=== PATIENT | male | born 1970 | race Caucasian/White ===

== ENCOUNTER 2019-01-03 13:34 | Inpatient (IN) ==
[2019-01-03] MEDS ORDERED: Furosemide 40 MG/4 ML VIAL IVP ONE (13:43)
--- NOTE | 2019-01-03 13:44 | Emergency Department Note ---
Disposition Clinical Impression: Congestive heart failure, Elevated troponin Disposition: Admitted As Inpatient General Adult HPI - General Chief complaint: ED Shortness of Breath/Dyspnea Stated complaint: gen swelling, out of meds Time Seen by Provider: 01/03/19 13:35 Source: patient Mode of arrival: EMS Limitations: no limitations Nursing Notes Reviewed: Yes Vital Signs Reviewed: Yes - History of Present Illness HPI Narrative: Patient complains of shortness of breath and swelling says he ran out of his Lasix and he has swollen up. He admits this is happened before when he ran out of his Lasix. He denies any other problems such as chest pain fevers chills nausea vomiting Onset (ago): day(s) (2 days) Location: chest, other (Lower body swelling) Pain Scale: 0 Consistency: constant Improves with: nothing Worsens with: nothing Associated symptoms: Reports: shortness of breath - Related Data Home Medications Medication Instructions Recorded Confirmed Levothyroxine [Synthroid] 50 mcg PO 0630 12/06/18 01/03/19 Previous Rx's Medication Instructions Recorded Aspirin Enteric Coated [Aspirin EC] 81 mg PO DAILY #30 tablet. 03/02/18 Atorvastatin [Lipitor] 20 mg PO HS #60 tablet 03/02/18 Carvedilol [Coreg] 6.25 mg PO BIDWM #60 tablet 03/02/18 Furosemide [Lasix] 20 mg PO BIDDIURETIC #60 tablet 03/02/18 Lisinopril [Zestril] 5 mg PO DAILY #30 tablet 03/02/18 metFORMIN [Glucophage] 500 mg PO BIDWM #60 tablet 03/02/18 Allergies Allergy/AdvReac Type Severity Reaction Status Date / Time No Known Allergies Allergy Verified 09/28/15 12:07 All systems ED: reviewed and negative except as stated. Review of Systems: As Per HPI Constitutional: Denies: fever, chills, weakness, weight change Eyes: Denies: eye pain, eye discharge, vision change ENT ED: Denies: ear pain, throat pain, dental pain, hearing loss, epistaxis, congestion, dysphagia Cardiovascular: Denies: chest pain, palpitations, dyspnea on exertion, edema, syncope Respiratory: Reports: as per HPI, dyspnea Gastrointestinal: Denies: abdominal pain, nausea, vomiting, diarrhea, constipation, hematemesis, melena, hematochezia Genitourinary: Denies: urgency, dysuria, frequency, hematuria Musculoskeletal: Reports: as per HPI, other (lower body edema). Denies: back pain, neck pain, arthralgia, myalgia Integumentary: Denies: rash, abrasion, lesions Neurological: Denies: headache, weakness, numbness, paresthesias, confusion, abnormal gait, vertigo Psychiatric: Denies: anxiety, depression, suicidal thoughts, homicidal thoughts, auditory hallucinations, visual hallucinations Endocrine: Denies: fatigue Hematological/Lymphatic: Denies: easy bleeding, easy bruising Allergic/Immunologic: Denies: facial swelling, urticaria Past Medical History - Past Medical History Attestation: Yes The following information was validated with the patient. Source: patient, nursing notes reviewed Medical history: Reports: cardiomyopathy (Ejection fraction 30%), CHF, diabetes, hyperlipidemia, hypertension, thyroid disease, other (Obesity, obstructive sleep apnea, pulmonary hypertension). Denies: DVT, pulmonary embolus, renal disease Surgical history: Reports: herniorrhaphy, other (Left heart catheterization February 2018 with normal coronaries) Psychiatric history: Reports: no psych history - Social History Smoking Status: Never smoker Smokeless Tobacco Status: Yes Alcohol use: Reports: none Drug use: Reports: none Physical Exam - General Limitations: no limitations General appearance: alert, in no apparent distress - Head Head exam: atraumatic, normocephalic, normal inspection - Eye Eye exam: Present: normal appearance, PERRL, EOMI - ENT ENT exam: normal exam, normal oropharynx, mucous membranes moist - Neck Neck exam: Present: normal inspection, full ROM, trachea midline - Chest Chest inspection: Present: normal inspection, symmetric chest wall rise - Respiratory Respiratory exam: Present: other (Decreased breath sounds). Absent: respiratory distress, accessory muscle use - Cardiovascular Cardiovascular exam: Present: regular rate, normal rhythm, normal heart sounds - Abdominal Exam Abdominal exam: Present: soft, Non-Tender - Extremities Exam Extremities exam: Present: pedal edema, other (bilateral leg edema, lower abdominal edema) - Back Exam Back exam: Present: normal inspection, full ROM. Absent: tenderness - Neurological Exam Neurological exam: Present: alert, oriented X3 - Psychiatric Psychiatric exam: Present: normal affect, normal mood - Skin Skin exam: Present: warm, dry, intact, normal color Course Vital Signs Temperature 97.1 F L 01/03/19 13:36 Pulse Rate 86 01/03/19 13:36 Respiratory Rate 24 01/03/19 13:36 Blood Pressure 118/83 01/03/19 13:36 O2 Sat by Pulse Oximetry 90 01/03/19 13:36 Temperature 97.4 F L 01/03/19 18:54 Pulse Rate 80 01/03/19 18:54 Respiratory Rate 16 01/03/19 18:54 Blood Pressure 123/80 01/03/19 18:54 O2 Sat by Pulse Oximetry 98 01/03/19 18:54 Oxygen Delivery Oxygen Delivery Nasal Cannula Medical Decision Making - MDM Narrative Medical decision making narrative: I reviewed the patient's medication list - Lab Data Lab results reviewed: Yes I reviewed the patient's lab results. Result diagrams: 01/03/19 14:02 01/03/19 14:02 Lab Results 01/03/19 01/03/19 01/03/19 Range/Units 14:02 14:02 14:02 WBC 7.8 (4.3-11.1) K/mcL RBC 4.15 L (4.19-5.50) M/mcL Hgb 11.2 L (12.9-16.9) g/dL Hct 36.6 L (37.5-50.1) % MCV 88.2 (83.0-100.0) fL MCH 27.0 L (28.0-33.3) pg MCHC 30.6 L (31.6-35.5) g/dL RDW 15.6 H (11.5-14.5) % Plt Count 265 (140-400) K/mcL MPV 10.4 (9.4-12.4) fL Immature Gran % 0.3 (0-4) % Seg Neutrophils % 65.0 % Lymphocytes % 18.6 % Monocytes % 12.0 % Eosinophils % 2.8 % Basophils % 1.3 % Neutrophils # 5.1 (1.6-8.9) K/mcL Lymphocytes # 1.5 (0.6-4.6) K/mcL Monocytes # 0.9 (0.0-1.3) K/mcL Eosinophils # 0.2 (0.0-0.6) K/mcL Basophils # 0.1 (0.0-0.2) K/mcL Sample Site ABG pH (7.32-7.45) pH Units ABG pCO2 (35-45) mmHg ABG pO2 (85-104) mmHg ABG HCO3 (21-27) mEq/L ABG Total CO2 (20-26) mEq/L ABG O2 Saturation (95-98) % ABG Base Excess (-2 to 3) mEq/L [place] Test O2 Delivery Device Inspired O2 (1-15=lpm [id number]=%) Sodium 144 (136-145) mEq/L Potassium 3.2 L (3.5-5.1) mEq/L Chloride 96 L (98-107) mEq/L Carbon Dioxide 40 H* (23-29) mEq/L BUN 18 (6-20) mg/dL Creatinine 1.38 H (0.70-1.30) mg/dL Est GFR ( Amer) > 60 (> 60) Est GFR (Non-Af Amer) 55 L (> 60) BUN/Creatinine Ratio 13 (6-26) Glucose 118 H (70-105) mg/dL Calculated Osmolality 301 H (280-300) Calcium 8.7 (8.6-10.3) mg/dL Total Bilirubin 1.1 H (0.3-1.0) mg/dL AST 25 (13-39) Units/L ALT 12 (7-52) Units/L Alkaline Phosphatase 100 (34-104) Units/L Troponin I 0.05 H* (< 0.04) ng/mL B-Natriuretic Peptide 1532 H (Less than 100) pg/mL Serum Total Protein 5.8 L (6.4-8.9) g/dL Albumin 2.7 L (3.5-5.7) g/dL Globulin 3.1 (2.4-3.5) g/dL Albumin/Globulin Ratio 0.9 L (1.1-2.2) Urine Color (Yellow) Urine Clarity (Clear) Urine pH (5.0-8.0) pH Units Ur Specific [place] (1.010-1.025) Urine Protein (Neg-Trace) mg/dL Urine Glucose (UA) (Normal) mg/dL Urine Ketones (Negative) mg/dL Urine Blood (Negative) Urine Nitrite (Negative) Urine Bilirubin (Negative) Urine Urobilinogen (Normal) mg/dL Ur Leukocyte Esterase (Negative) Urine Microscopic RBC (0-3) per hpf Urine Microscopic WBC (0-3) per hpf Ur Squamous Epith Cells (None-Few) per lpf Urine Mucus (Few) Ur Culture Indicated? (NO) 01/03/19 01/03/19 01/03/19 Range/Units 14:47 15:00 15:59 WBC (4.3-11.1) K/mcL RBC (4.19-5.50) M/mcL Hgb (12.9-16.9) g/dL Hct (37.5-50.1) % MCV (83.0-100.0) fL MCH (28.0-33.3) pg MCHC (31.6-35.5) g/dL RDW (11.5-14.5) % Plt Count (140-400) K/mcL MPV (9.4-12.4) fL Immature Gran % (0-4) % Seg Neutrophils % % Lymphocytes % % Monocytes % % Eosinophils % % Basophils % % Neutrophils # (1.6-8.9) K/mcL Lymphocytes # (0.6-4.6) K/mcL Monocytes # (0.0-1.3) K/mcL Eosinophils # (0.0-0.6) K/mcL Basophils # (0.0-0.2) K/mcL Sample Site R Radial ABG pH 7.51 H (7.32-7.45) pH Units ABG pCO2 49 H (35-45) mmHg ABG pO2 66 L (85-104) mmHg ABG HCO3 39 H (21-27) mEq/L ABG Total CO2 40 H (20-26) mEq/L ABG O2 Saturation 94 L (95-98) % ABG Base Excess 14 H (-2 to 3) mEq/L [place] Test Positive O2 Delivery Device Cannula Inspired O2 28.0 (1-15=lpm [id number]=%) Sodium (136-145) mEq/L Potassium (3.5-5.1) mEq/L Chloride (98-107) mEq/L Carbon Dioxide (23-29) mEq/L BUN (6-20) mg/dL Creatinine (0.70-1.30) mg/dL Est GFR ( Amer) (> 60) Est GFR (Non-Af Amer) (> 60) BUN/Creatinine Ratio (6-26) Glucose (70-105) mg/dL Calculated Osmolality (280-300) Calcium (8.6-10.3) mg/dL Total Bilirubin (0.3-1.0) mg/dL AST (13-39) Units/L ALT (7-52) Units/L Alkaline Phosphatase (34-104) Units/L Troponin I 0.05 H* (< 0.04) ng/mL B-Natriuretic Peptide (Less than 100) pg/mL Serum Total Protein (6.4-8.9) g/dL Albumin (3.5-5.7) g/dL Globulin (2.4-3.5) g/dL Albumin/Globulin Ratio (1.1-2.2) Urine Color Yellow (Yellow) Urine Clarity Clear (Clear) Urine pH 7.5 (5.0-8.0) pH Units Ur Specific [place] 1.015 (1.010-1.025) Urine Protein 30 H (Neg-Trace) mg/dL Urine Glucose (UA) Normal (Normal) mg/dL Urine Ketones Negative (Negative) mg/dL Urine Blood Trace-intact H (Negative) Urine Nitrite Negative (Negative) Urine Bilirubin Negative (Negative) Urine Urobilinogen >=8.0 H (Normal) mg/dL Ur Leukocyte Esterase Negative (Negative) Urine Microscopic RBC 0-3 (0-3) per hpf Urine Microscopic WBC 0-3 (0-3) per hpf Ur Squamous Epith Cells Few (None-Few) per lpf Urine Mucus Few (Few) Ur Culture Indicated? NO (NO) - Radiology Data Radiology results reviewed: Yes I reviewed the patient's radiology results. - EKG Data EKG #1 EKG attestation: Yes I reviewed and interpreted this EKG. EKG results narrative: EKG shows a sinus rhythm with a rate of 87 bpm. RI interval 173 ms. QRS duration 175 ms. QT interval 397 ms QTC 478 ms. R axis of 108 degrees 108 - no acute ST elevation RBBB
[2019-01-03 14:11] LABS: Basophils # 0.1 K/mcL (0.0-0.2); Basophils % 1.3 %; Eosinophils # 0.2 K/mcL (0.0-0.6); Eosinophils % 2.8 %; Hematocrit 36.6 % (37.5-50.1); Hemoglobin 11.2 g/dL (12.9-16.9); Immature Granulocytes % 0.3 % (0-4); Lymphocytes # 1.5 K/mcL (0.6-4.6); Lymphocytes % 18.6 %; Mean Corpuscular HGB Conc 30.6 g/dL (31.6-35.5); Mean Corpuscular Volume 88.2 fL (83.0-100.0); Mean Platelet Volume 10.4 fL (9.4-12.4); Monocytes # 0.9 K/mcL (0.0-1.3); Neutrophils # 5.1 K/mcL (1.6-8.9); Platelet Count 265 K/mcL (140-400); Red Blood Count 4.15 M/mcL (4.19-5.50); Red Cell Distribution Width 15.6 % (11.5-14.5)
[2019-01-03 14:29] LABS: Alanine Aminotransferase 12 Units/L (7-52); Albumin 2.7 g/dL (3.5-5.7); Albumin/Globulin Ratio 0.9 (1.1-2.2); Alkaline Phosphatase 100 Units/L (34-104); Aspartate Amino Transferase 25 Units/L (13-39); BUN/Creatinine Ratio 13 (6-26); Bilirubin,Total 1.1 mg/dL (0.3-1.0); Blood Urea Nitrogen 18 mg/dL (6-20); Calcium 8.7 mg/dL (8.6-10.3); Carbon Dioxide 40 mEq/L (23-29); Chloride 96 mEq/L (98-107); Globulin 3.1 g/dL (2.4-3.5); Glucose 118 mg/dL (70-105); Osmolality,Calculated 301 (280-300); Potassium 3.2 mEq/L (3.5-5.1); Sodium 144 mEq/L (136-145); Total Protein 5.8 g/dL (6.4-8.9); eGFR For Non-African Americans 55 (> 60)
[2019-01-03] MEDS ORDERED: Bumetanide 1 MG/4 ML VIAL IVP SCH (14:30)
[2019-01-03 14:34] LABS: Troponin I 0.05 ng/mL (< 0.04)
[2019-01-03] MEDS ORDERED: Aspirin 81 MG TAB.CHEW PO STA (14:35)
[2019-01-03 14:52] LABS: Bilirubin,Urine Negative (Negative); Blood,Urine Trace-intact (Negative); Clarity,Urine Clear (Clear); Color,Urine Yellow (Yellow); Glucose,Urine (UA) Normal (Normal); Ketones,Urine Negative (Negative); Leukocyte Esterase,Urine Negative (Negative); Nitrite,Urine Negative (Negative); PH,Urine 7.5 pH Units (5.0-8.0); Protein,Urine 30 mg/dL (Neg-Trace); Specific Gravity,Urine 1.015 (1.010-1.025); Urobilinogen,Urine >=8.0 mg/dL (Normal)
[2019-01-03 14:58] LABS: Mucus,Urine Few (Few); RBC,Urine 0-3 per hpf (0-3); Squamous Epithelial Cell,Urine Few per lpf (None-Few); WBC,Urine 0-3 per hpf (0-3)
[2019-01-03 15:04] LABS: ABG Base Excess 14 mEq/L (-2 to 3); ABG HCO3 39 mEq/L (21-27); ABG Oxygen Saturation 94 % (95-98); ABG PCO2 49 mmHg (35-45); ABG PH 7.51 pH Units (7.32-7.45); ABG PO2 66 mmHg (85-104); ABG TCO2 40 mEq/L (20-26)
[2019-01-03] MEDS ORDERED: Furosemide 20 MG TABLET PO SCH (18:35)
[2019-01-03] MEDS ORDERED: Naloxone 0.4 MG/ML INJ IVP PRN (18:35)
[2019-01-03] MEDS: *HR* Metformin 500 MG TABLET PO SCH (22:11)
[2019-01-04] MEDS: Levothyroxine 25 MCG TABLET PO SCH (06:43)
[2019-01-04 07:19] LABS: BUN/Creatinine Ratio 16 (6-26); Blood Urea Nitrogen 18 mg/dL (6-20); Calcium 8.9 mg/dL (8.6-10.3); Carbon Dioxide 36 mEq/L (23-29); Chloride 94 mEq/L (98-107); Glucose 126 mg/dL (70-105); Osmolality,Calculated 295 (280-300); Potassium 3.1 mEq/L (3.5-5.1); Sodium 141 mEq/L (136-145); eGFR For Non-African Americans > 60 (> 60)
[2019-01-04 07:22] LABS: Thyroid Stimulating Hormone 1.857 mcIU/mL (0.340-5.600)
[2019-01-04] MEDS: Bumetanide 1 MG/4 ML VIAL IVP SCH ×2 (07:37→15:46)
[2019-01-04] MEDS: *HR* Metformin 500 MG TABLET PO SCH ×2 (07:37→15:45)
[2019-01-04] MEDS ORDERED: Bumetanide 1 MG/4 ML VIAL IVP SCH (08:00)
[2019-01-04] MEDS ORDERED: Aspirin Enteric Coated 81 MG Tablet PO SCH (09:00)
[2019-01-04 09:27] LABS: Folate 14.5 ng/mL (3.0-16.0)
[2019-01-04] MEDS ORDERED: *HR* HYDROcodone/Acet 5/325 mg TABLET PO PRN (12:13)
--- NOTE | 2019-01-04 12:25 | Internal Med History&Physical ---
Date of Encounter: 01/04/19 Time of Encounter: 11:40 Assessment and Plan (1) Nonischemic cardiomyopathy Current visit: Yes Status: Acute IV diuretics have been started. Coreg and lisinopril doses will be increased. Imdur and Lanoxin will be started. (2) Anemia Current visit: Yes Status: Acute Anemia testing showed iron 32, transferrin saturation 8%, transferrin 298, ferritin 44, B12 1170, and folate 14.5. He will be started on ferrous sulfate with ascorbic acid. Aspirin will be discontinued. Qualifiers: Anemia type: unspecified type Qualified Code(s): D64.9 - Anemia, unspecified (3) DM type 2 (diabetes mellitus, type 2) Current visit: Yes Status: Acute Check hemoglobin A1c in a.m. Qualifiers: Diabetes mellitus fci insulin use: without remote computer terminal operator use Diabetes mellitus complication status: without complication Qualified Code(s): E11.9 - Type 2 diabetes mellitus without complications (4) Hypokalemia Current visit: Yes Status: Acute Likely due to diuretic use. Supplemental potassium has been ordered. Internal Medicine - H&P: HPI Chief complaint: Dyspnea and edema Admitted From: Emergency Dept Plans for Post Hospital Care: Home History of present illness: Mr. Carl is a 48 year old male who came to emergency room complaining of increased dyspnea and edema for the past few days. He states he was running low on Lasix so decrease the dose to 20 mg daily instead of 20 mg twice a day as had been prescribed. He denies changing other medications. He had worsening edema and dyspnea develops a came to emergency room. He was found to have anasarca and was admitted to [facility] floor for ongoing care needs. Cardiovascular history is significant for nonischemic cardiomyopathy. Heart cath at [facility] 02/28/2018 showed LVEF of 30% with no significant coronary occl usion. Echocardiogram 02/28/2018 showed LVEF of 30%. The left ventricular end- diastolic diameter was significantly elevated at 7.57 cm. The interventricular septum and posterior wall thickness measurements were 1.09 and 1.39 cm respectively. There was LAE at 5.3 cm. The right atrium was reported normal in size without dimensions recorded. The E/A ratio was 1.9. There was moderate mitral regurgitation reported. The estimated RVSP was 35 mmHg. He denies hypertension DVT or pulmonary embolus. Past Med Surg Social Fam HX - Past Medical History Medical history: cardiomyopathy (Ejection fraction 30%), CHF, diabetes, hyperl ipidemia, hypertension, thyroid disease, other (Obesity, obstructive sleep apnea, pulmonary hypertension) Additional medical history: poor historian Psychiatric history: no psych history - Past Surgical History Surgical History: herniorrhaphy, other (Left heart catheterization February 2018 with normal coronaries) - Social History Smoking Status: Never smoker Smokeless Tobacco Status: Yes Alcohol use: none Drug use: none Internal Medicine - H&P: Meds Aspirin Enteric Coated [Aspirin EC] 81 mg PO DAILY #30 tablet.dr 03/02/18 [Rx] Atorvastatin [Lipitor] 20 mg PO HS #60 tablet 03/02/18 [Rx] Carvedilol [Coreg] 6.25 mg PO BIDWM #60 tablet 03/02/18 [Rx] Furosemide [Lasix] 20 mg PO BIDDIURETIC #60 tablet 03/02/18 [Rx] Lisinopril [Zestril] 5 mg PO DAILY #30 tablet 03/02/18 [Rx] metFORMIN [Glucophage] 500 mg PO BIDWM #60 tablet 03/02/18 [Rx] Levothyroxine [Synthroid] 50 mcg PO 0630 12/06/18 [History] Allergy/AdvReac Type Severity Reaction Status Date / Time No Known Allergies Allergy Verified 09/28/15 12:07 All Systems PM: A 10-system review of systems was performed and is negative for pertinent findings except as documented above in the HPI. Review of systems: Gen.: His weight has increased from 145.8 kg on 03/02/2018 to 180.076 kg at present time Cardiovascular: As per history of present illness Respiratory: He is a lifelong nonsmoker and denies chronic lung disease. He reports he had ROSY testing with negative findings in the past GI: He has had cholecystectomy. He denies disorders of his liver or exocrine pancreas : He denies hematuria dysuria or kidney stones Neurologic: He denies large distribution strokes or seizures. Endocrine: He has hypothyroidism and hyperlipidemia. He was given metformin for possible diabetes in the past but could not tolerate it and it was discontinued. Most recent hemoglobin A1c was 6.8% on 02/27/2018. Hematology/oncology: He was unaware he had anemia on labs in emergency room. He denies blood disorders or internal malignancies Psychiatric: He has feelings of anxiety at times. He denies depression or other mental health issues. [place] skeletal: He has chronic low back pain. He denies gout or other bone joint or muscle disorders. - Constitutional Vitals: Temp Pulse Resp BP Pulse Ox 97.7 F 16 88 140/84 94 01/04/19 07:06 01/04/19 07:06 01/04/19 07:06 01/04/19 07:06 01/04/19 07:06 Exam: Gen.: He is a well-developed morbidly obese male lying in bed who appears in mild to moderate discomfort. He complains of low back pain. HEENT: Head is atraumatic and normocephalic. Eyes: EOMI. There is no scleral icterus. Mouth: Mucosa is moist. Neck: Has a large neck. It is nontender to palpation. Heart: Regular without murmurs gallops or ectopics Lungs: He has diminished breath sounds diffusely. No wheezes or crackles are heard. Abdomen: He has a very large abdomen. There is significant tense ascites to p ercussion. No masses or guarding are noted. He has dependent pitting edema of his flanks. Extremities: He has multiple shallow excoriations on his arms legs and torso. Dorsalis pedis and posttibial pulses are not palpable. There is 1-2+ edema the dorsum feet and lower legs bilaterally. Neurologic: Mental status: He is talkative and a good historian. Cranial nerves: Smile is symmetric. Forehead wrinkles bilaterally. Tongue protrudes midline. EOMI. Motor: There is no pronator drift. Cerebellar: Finger to nose is intact bilaterally. Skin: Warm and dry Internal Med - H&P Results - Labs CBC & Chem 7: 01/03/19 14:02 01/04/19 06:00 Labs: Short CBC 01/03/19 Range/Units 14:02 WBC 7.8 (4.3-11.1) K/mcL Hgb 11.2 L (12.9-16.9) g/dL Hct 36.6 L (37.5-50.1) % Plt Count 265 (140-400) K/mcL Neutrophils # 5.1 (1.6-8.9) K/mcL BMP 01/03/19 01/04/19 14:02 06:00 Sodium 144 141 Potassium 3.2 L 3.1 L Chloride 96 L 94 L Carbon Dioxide 40 H* 36 H BUN 18 18 Creatinine 1.38 H 1.14 Glucose 118 H 126 H Calcium 8.7 8.9 Cardiac Enzymes 01/03/19 01/03/19 Range/Units 14:02 15:59 Troponin I 0.05 H* 0.05 H* (< 0.04) ng/mL Liver Function 01/03/19 Range/Units 14:02 Total Bilirubin 1.1 H (0.3-1.0) mg/dL AST 25 (13-39) Units/L ALT 12 (7-52) Units/L Alkaline Phosphatase 100 (34-104) Units/L Albumin 2.7 L (3.5-5.7) g/dL Urine 01/03/19 Range/Units 14:47 Urine Color Yellow (Yellow) Urine Clarity Clear (Clear) Urine pH 7.5 (5.0-8.0) pH Units Ur Specific [place] 1.015 (1.010-1.025) Urine Protein 30 H (Neg-Trace) mg/dL Urine Glucose (UA) Normal (Normal) mg/dL - ABG Interpretation ABG results: 01/03/19 15:00 ABG pH 7.51 H ABG pCO2 49 H ABG pO2 66 L ABG HCO3 39 H ABG Total CO2 40 H ABG O2 Saturation 94 L ABG Base Excess 14 H - Impressions ITS Impressions Chest X-Ray 01/03/19 13:43 IMPRESSION: 1. Cardiomegaly with worsening pulmonary edema. 2. Bilateral pleural effusions with associated bibasilar atelectasis, worse. D/ / 01/03/2019 14:25:22 Ralf Barbosa MD / [email or web address] Interpreting Provider: Ralf Barbosa MD Chest X-Ray 01/04/19 07:09 IMPRESSION: Worsening airspace opacity throughout the right lung which may reflect worsening edema or pneumonia. Otherwise stable chest. D/ / Geraldine Kendrick MD / Geraldine Kendrick MD Interpreting Provider: Geraldine Kendrick MD
[2019-01-04] MEDS: Isosorbide MONOnitrate (24 HR) 30 MG TAB.ER.24H PO SCH (13:25)
[2019-01-04] MEDS: Lisinopril 20 MG TABLET PO SCH (13:26)
[2019-01-04] MEDS: *HR* Digoxin 0.25 MG TABLET PO SCH (13:27)
--- NOTE | 2019-01-04 21:07 | Electrocardiograph Report ---
[place] [id number] Test Date: 2019-01-03 Pat Name: Yonatan Carl Department: EDP-16 Room: [facility] Gender: M Despatch Clerk: : 1970 Requested By: Bharat Call Order Number: [id number] Reading MD: Yuni Parkinson Measurements Intervals [place] Rate: 87 P: 47 HI: 173 QRS: 108 QRSD: 175 T: -75 QT: 397 QTc: 478 Interpretive Statements Sinus rhythm RBBB and LPFB Electronically Signed On 01-04-2019 21:05:24 EST by Yuni Parkinson
[2019-01-04] MEDS: *HR* HYDROcodone/Acet 5/325 mg TABLET PO PRN (21:28)
[2019-01-04] MEDS ORDERED: Ondansetron 4 MG/2 ML VIAL IVP PRN (21:33)
[2019-01-05 05:49] LABS: Basophils # 0.1 K/mcL (0.0-0.2); Basophils % 0.5 %; Eosinophils % 0.1 %; Hematocrit 37.5 % (37.5-50.1); Hemoglobin 11.7 g/dL (12.9-16.9); Immature Granulocytes % 0.4 % (0-4); Lymphocytes # 2.7 K/mcL (0.6-4.6); Mean Corpuscular HGB Conc 31.2 g/dL (31.6-35.5); Mean Corpuscular Volume 86.4 fL (83.0-100.0); Mean Platelet Volume 10.5 fL (9.4-12.4); Monocytes # 0.9 K/mcL (0.0-1.3); Monocytes % 8.6 %; Neutrophils # 7.1 K/mcL (1.6-8.9); Platelet Count 312 K/mcL (140-400); Red Blood Count 4.34 M/mcL (4.19-5.50); Segmented Neutrophils % 65.4 %
[2019-01-05] MEDS: Ascorbic Acid 500 MG TABLET PO SCH (05:59)
[2019-01-05] MEDS: Levothyroxine 25 MCG TABLET PO SCH (05:59)
[2019-01-05] MEDS: *HR* HYDROcodone/Acet 5/325 mg TABLET PO PRN ×4 (06:04→20:07)
[2019-01-05 06:16] LABS: BUN/Creatinine Ratio 19 (6-26); Blood Urea Nitrogen 23 mg/dL (6-20); Carbon Dioxide 35 mEq/L (23-29); Chloride 95 mEq/L (98-107); Glucose 104 mg/dL (70-105); Magnesium 1.6 mg/dL (1.6-2.6); Osmolality,Calculated 296 (280-300); Potassium 3.5 mEq/L (3.5-5.1); Sodium 141 mEq/L (136-145); eGFR For Non-African Americans > 60 (> 60)
[2019-01-05 10:16] LABS: Estimated Average Glucose 163 mg/dl; Hemoglobin A1C 7.3 %
[2019-01-05] MEDS: Bumetanide 1 MG/4 ML VIAL IVP SCH ×2 (10:21→18:24)
[2019-01-05] MEDS: *HR* Digoxin 0.25 MG TABLET PO SCH (10:22)
[2019-01-05] MEDS: Lisinopril 20 MG TABLET PO SCH (10:23)
[2019-01-05] MEDS: Isosorbide MONOnitrate (24 HR) 30 MG TAB.ER.24H PO SCH (10:23)
[2019-01-05] MEDS: *HR* Metformin 500 MG TABLET PO SCH ×2 (10:23→18:23)
--- NOTE | 2019-01-05 11:17 | Internal Med Progress Note ---
Date of Encounter: 01/05/19 Time of Encounter: 11:05 - Assessment and plan (1) Nonischemic cardiomyopathy Current Visit: Yes Status: Acute Assessment and plan: January 05. Continue IV diuretics. Coreg and Imdur doses will be increased. Continue lisinopril and Lanoxin. (2) Anemia Current Visit: Yes Status: Acute Assessment and plan: January 05. Anemia testing showed iron 32, transferrin saturation 8%, transferrin 298, ferritin 44, B12 1170, and folate 14.5. He will be started on ferrous sulfate with ascorbic acid. Aspirin will be discontinued. Qualifiers: Anemia type: unspecified type Qualified Code(s): D64.9 - Anemia, unspecified (3) DM type 2 (diabetes mellitus, type 2) Current Visit: Yes Status: Acute Assessment and plan: January 05. Hemoglobin A1c 7.3%. Accu-Cheks show overall good control. He is tolerating metformin at present dose. Qualifiers: Diabetes mellitus fpc insulin use: without fpc use Diabetes mellitus complication status: without complication Qualified Code(s): E11.9 - Type 2 diabetes mellitus without complications (4) Hypokalemia Current Visit: Yes Status: Acute Assessment and plan: January 05. Potassium normalized 3.5. Continue potassium supplementation. - Subjective Interval history: January 05. He has no new complaints and feels better. - Constitutional Vitals: Temp Pulse Resp BP Pulse Ox 97.8 F 84 16 139/91 91 01/05/19 07:15 01/05/19 07:15 01/05/19 07:15 01/05/19 07:15 01/05/19 07:15 Exam: He is resting in bed and appears more comfortable than yesterday. Extremities showed slight decrease in erythema and edema. He appears less dyspneic. I reviewed his medications and lab results. Internal Medicine: Result - Labs CBC & Chem 7: 01/05/19 04:39 01/05/19 04:39 Labs: Short CBC 01/05/19 Range/Units 04:39 WBC 10.9 (4.3-11.1) K/mcL Hgb 11.7 L (12.9-16.9) g/dL Hct 37.5 (37.5-50.1) % Plt Count 312 (140-400) K/mcL Neutrophils # 7.1 (1.6-8.9) K/mcL BMP 01/05/19 04:39 Sodium 141 Potassium 3.5 Chloride 95 L Carbon Dioxide 35 H BUN 23 H Creatinine 1.23 Glucose 104 Calcium 9.0 - ABG Interpretation ABG results: ABG ABG pH 7.51 pH Units (7.32-7.45) H 01/03/19 15:00 ABG pCO2 49 mmHg (35-45) H 01/03/19 15:00 ABG pO2 66 mmHg (85-104) L 01/03/19 15:00 ABG O2 Saturation 94 % (95-98) L 01/03/19 15:00 Consult Discharge Plan - Plan Referrals: NONE,PCP [Primary Care Provider] - 1 week
[2019-01-05] MEDS ORDERED: *HR* Promethazine 25 MG/ML VIAL IVP PRN (13:02)
[2019-01-06] MEDS: Ascorbic Acid 500 MG TABLET PO SCH (05:57)
[2019-01-06] MEDS: Levothyroxine 25 MCG TABLET PO SCH (05:59)
[2019-01-06 08:16] LABS: Basophils # 0.1 K/mcL (0.0-0.2); Basophils % 0.6 %; Eosinophils # 0.2 K/mcL (0.0-0.6); Eosinophils % 1.9 %; Hematocrit 36.3 % (37.5-50.1); Immature Granulocytes % 0.3 % (0-4); Mean Corpuscular HGB Conc 30.3 g/dL (31.6-35.5); Mean Corpuscular Hemoglobin 26.8 pg (28.0-33.3); Mean Corpuscular Volume 88.3 fL (83.0-100.0); Mean Platelet Volume 10.2 fL (9.4-12.4); Monocytes # 1.2 K/mcL (0.0-1.3); Monocytes % 9.8 %; Neutrophils # 7.9 K/mcL (1.6-8.9); Platelet Count 277 K/mcL (140-400); Red Blood Count 4.11 M/mcL (4.19-5.50); Red Cell Distribution Width 16.3 % (11.5-14.5); Segmented Neutrophils % 63.4 %
[2019-01-06] MEDS: Bumetanide 1 MG/4 ML VIAL IVP SCH ×2 (08:45→17:03)
[2019-01-06] MEDS: Lisinopril 20 MG TABLET PO SCH (08:45)
[2019-01-06] MEDS: *HR* Digoxin 0.25 MG TABLET PO SCH (08:45)
[2019-01-06] MEDS ORDERED: Isosorbide MONOnitrate (24 HR) 30 MG TAB.ER.24H PO SCH (09:00)
[2019-01-06 10:18] LABS: BUN/Creatinine Ratio 23 (6-26); Blood Urea Nitrogen 29 mg/dL (6-20); Calcium 8.6 mg/dL (8.6-10.3); Carbon Dioxide 40 mEq/L (23-29); Chloride 96 mEq/L (98-107); Glucose 130 mg/dL (70-105); Osmolality,Calculated 300 (280-300); Potassium 3.6 mEq/L (3.5-5.1); Sodium 141 mEq/L (136-145); eGFR For Non-African Americans > 60 (> 60)
[2019-01-06 12:48] VITALS: BP 112/70
[2019-01-06] MEDS: *HR* HYDROcodone/Acet 5/325 mg TABLET PO PRN (14:20)
--- NOTE | 2019-01-06 15:46 | Discharge Summary ---
Date of Encounter: 01/06/19 Time of Encounter: 15:25 - Discharge Diagnosis (1) Nonischemic cardiomyopathy Priority: Primary Status: Acute (2) Anemia Priority: Secondary Status: Acute Qualifiers: Anemia type: unspecified type Qualified Code(s): D64.9 - Anemia, unspecified (3) DM type 2 (diabetes mellitus, type 2) Priority: Secondary Status: Chronic Qualifiers: Diabetes mellitus residential insulin use: without residential use Diabetes mellitus complication status: without complication Qualified Code(s): E11.9 - Type 2 diabetes mellitus without complications (4) Hypokalemia Priority: Secondary Status: Resolved Hospital course: Mr. Carl is a 48 year old male who came to emergency room complaining of increased dyspnea and edema for the past few days. He states he was running low on Lasix so decreased the dose to 20 mg daily instead of 20 mg twice a day as had been prescribed. He denies changing other medications. He had worsening edema and dyspnea develop so came to emergency room. He was found to have anasarca and was admitted to [facility] floor for ongoing care needs. Initial orders were written by the emergency room physician. I saw him on January 04 and performed a history and physical. He was started on IV diuretics. Coreg and lisinopril doses were increased. Imdur and Lanoxin were started. He had symptomatic improvement with decreased dyspnea and edema. BN peptide bebeto to 2769 on January 05 but had improved to 1750 by the following day. Creatinine was minimally changed at 1.28 on day of discharge. Anemia testing showed iron 32, transferrin saturation 8%, transferrin 298, ferritin 44, B12 1170, and folate 14.5. He was started on ferrous sulfate with ascorbic acid and this will be continued at discharge. Supplemental potassium was given and potassium normalized to 3.6 by day of discharge. He will continue supplemental potassium at home. On January 06 he stated he wished to be discharged home. He will follow with his PCP Dr. Scar Hoffman within 1 week. Room air oximetry will be checked on 6 minute walk prior to discharge. - Time Spent with Patient Total time spent providing and/or coordinating discharge services: - Discharge Medications Prescriptions: Ascorbic Acid [Vitamin C] 500 mg PO 0630 #30 tablet Carvedilol [Coreg] 25 mg PO BIDWM #60 tablet Digoxin [Lanoxin] 0.25 mg PO DAILY #30 tablet Ferrous Sulfate 325 mg PO 0630 #30 tablet Furosemide [Lasix] 20 mg PO BIDDIURETIC #60 tablet Isosorbide MONOnitrate (24 HR) [Imdur] 60 mg PO DAILY #30 tab.er.24h Lisinopril [Zestril] 20 mg PO DAILY #30 tablet Potassium Chloride 20 meq PO DAILY #30 tab.er.prt Home Medications: Aspirin Enteric Coated [Aspirin EC] 81 mg PO DAILY #30 tablet.dr 03/02/18 [Rx] Atorvastatin [Lipitor] 20 mg PO HS #60 tablet 03/02/18 [Rx] Levothyroxine [Synthroid] 50 mcg PO 0630 12/06/18 [History] Ascorbic Acid [Vitamin C] 500 mg PO 0630 #30 tablet 01/06/19 [Rx] Carvedilol [Coreg] 25 mg PO BIDWM #60 tablet 01/06/19 [Rx] Digoxin [Lanoxin] 0.25 mg PO DAILY #30 tablet 01/06/19 [Rx] Ferrous Sulfate 325 mg PO 0630 #30 tablet 01/06/19 [Rx] Furosemide [Lasix] 20 mg PO BIDDIURETIC #60 tablet 01/06/19 [Rx] Isosorbide MONOnitrate (24 HR) [Imdur] 60 mg PO DAILY #30 tab.er.24h 01/06/19 [Rx] Lisinopril [Zestril] 20 mg PO DAILY #30 tablet 01/06/19 [Rx] Potassium Chloride 20 meq PO DAILY #30 tab.er.prt 01/06/19 [Rx] Allergies/Adverse Reactions: Allergy/AdvReac Type Severity Reaction Status Date / Time No Known Allergies Allergy Verified 09/28/15 12:07 Date of admission: 01/04/19 15:19 Primary care physician: Scar Hoffman M.D. Consults: 01/03/19 19:42 Consult to [employer] [CONS] Routine Reason for SW Consult: need for home oxygen - Constitutional Vitals: Temp Pulse Resp BP Pulse Ox 97.7 F 66 22 112/70 95 01/06/19 12:46 01/06/19 12:46 01/06/19 12:46 01/06/19 12:46 01/06/19 12:46 - Patient Status Disposition: Home, Self-Care - Discharge Instructions Follow Up With: Scar Hoffman MD [Partnered Physician] - 1 week - Diet and Activity Activity: resume usual activities as tolerated Diet: diabetic diet
== END 2019-01-06 19:20 | disposition home or self-care (01) | DRG 205 ==
LOC: EMEROOPIK 13:34 → INPPIK 13:34
PROVIDERS: ADMIT Internal Medicine; ATTEND Internal Medicine

== ENCOUNTER 2019-11-22 08:27 | Inpatient (IN) ==
[2019-11-22 09:07] LABS: ABG Base Excess 7 mEq/L (-2 to 3); ABG HCO3 35 mEq/L (21-27); ABG Oxygen Saturation 92 % (95-98); ABG PCO2 57 mmHg (35-45); ABG PO2 66 mmHg (85-104); ABG TCO2 36 mEq/L (20-26)
[2019-11-22 09:08] LABS: Basophils # 0.1 K/mcL (0.0-0.2); Basophils % 0.7 %; Eosinophils % 0.1 %; Hematocrit 47.2 % (37.5-50.1); Hemoglobin 14.7 g/dL (12.9-16.9); Immature Granulocytes % 0.3 % (0-4); Lymphocytes # 1.1 K/mcL (0.6-4.6); Lymphocytes % 10.4 %; Mean Corpuscular HGB Conc 31.1 g/dL (31.6-35.5); Mean Corpuscular Hemoglobin 28.9 pg (28.0-33.3); Mean Corpuscular Volume 92.9 fL (83.0-100.0); Mean Platelet Volume 11.9 fL (9.4-12.4); Monocytes # 0.9 K/mcL (0.0-1.3); Monocytes % 8.9 %; Neutrophils # 8.1 K/mcL (1.6-8.9); Platelet Count 238 K/mcL (140-400); Red Blood Count 5.08 M/mcL (4.19-5.50); Red Cell Distribution Width 14.6 % (11.5-14.5); Segmented Neutrophils % 79.6 %; White Blood Count 10.1 K/mcL (4.3-11.1)
[2019-11-22 09:13] LABS: Bilirubin,Urine Negative (Negative); Blood,Urine Trace-lysed (Negative); Clarity,Urine Clear (Clear); Color,Urine Yellow (Yellow); Glucose,Urine (UA) 500 mg/dL (Normal); Ketones,Urine Negative (Negative); Leukocyte Esterase,Urine Negative (Negative); Nitrite,Urine Negative (Negative); Protein,Urine Negative (Neg-Trace); Specific Gravity,Urine <= 1.005 (1.010-1.025); Urobilinogen,Urine Normal (Normal)
[2019-11-22 09:16] LABS: INR 1.1; Prothrombin Time 12.9 Seconds (9.4-12.1)
[2019-11-22 09:19] LABS: Activated Partial Thrombo Time 26.8 Seconds (26.0-36.0)
[2019-11-22 09:27] LABS: Bacteria,Urine Few per hpf (None-Few); Mucus,Urine Few per lpf (Few); RBC,Urine 0-3 per hpf (0-3); Squamous Epithelial Cell,Urine Few per lpf (None-Few); WBC,Urine 0-3 per hpf (0-3)
[2019-11-22 09:30] LABS: Troponin I 0.11 ng/mL (< 0.04)
[2019-11-22 09:38] LABS: Albumin 3.8 g/dL (3.5-5.7); Bilirubin,Direct 0.2 mg/dL (0.0-0.2); Bilirubin,Indirect 0.4 mg/dL (0.0-1.0); Bilirubin,Total 0.6 mg/dL (0.3-1.0); Calcium 10.6 mg/dL (8.6-10.3); Magnesium 2.6 mg/dL (1.6-2.6); Phosphorous 3.8 mg/dL (2.7-4.5); Potassium 2.8 mEq/L (3.5-5.1); Total Protein 7.8 g/dL (6.4-8.9)
[2019-11-22] MEDS: 0.9 % Sodium Chloride 1,000 ML IVC SCH ×3 (09:41→10:53)
[2019-11-22] MEDS ORDERED: *HR* Dextrose 50 % in Water (Vial) 50 ML VIAL IVP PRN ×2 (09:53→11:47)
[2019-11-22] MEDS ORDERED: Insulin Human Regular 10 UNIT in 0.9 % Sodium Chloride 10 ML IV ONE (09:54)
[2019-11-22] MEDS ORDERED: Insulin Human Regular 100 UNIT in 0.9 % Sodium Chloride 100 ML IVC SCH (10:00)
[2019-11-22] MEDS ORDERED: Ondansetron 4 MG/2 ML VIAL IVP ONE ×2 (10:37→20:00)
[2019-11-22] MEDS ORDERED: Insulin Regular, Human 100 UNIT/ML IV PRN (11:47)
[2019-11-22] MEDS: 0.45 % Sodium Chloride w/KCl 20 MEQ/1,000 ML MLS IVC SCH ×2 (12:43→14:22)
[2019-11-22 12:45] LABS: Magnesium 2.5 mg/dL (1.6-2.6); Phosphorous 1.4 mg/dL (2.7-4.5)
[2019-11-22 13:04] LABS: Calcium 9.8 mg/dL (8.6-10.3)
[2019-11-22 16:25] LABS: Calcium 10.1 mg/dL (8.6-10.3); Potassium 2.2 mEq/L (3.5-5.1)
[2019-11-22 16:58] LABS: Estimated Average Glucose 476 mg/dl
[2019-11-22 18:50] VITALS: BP 107/76
[2019-11-22] MEDS ORDERED: Pantoprazole 40 MG VIAL IVP SCH (19:18)
[2019-11-22] MEDS: Divalproex (12 HR) 250 MG TABLET PO SCH ×2 (19:38→20:11)
[2019-11-22] MEDS ORDERED: Ondansetron 4 MG/2 ML VIAL IVP PRN (19:59)
[2019-11-22] MEDS ORDERED: 0.9 % Sodium Chloride 500 ML ONE (20:28)
[2019-11-22 20:31] LABS: Magnesium 2.2 mg/dL (1.6-2.6); Phosphorous 2.9 mg/dL (2.7-4.5)
[2019-11-22 20:38] LABS: Calcium 9.7 mg/dL (8.6-10.3); Potassium 3.2 mEq/L (3.5-5.1)
[2019-11-23] MEDS ORDERED: *HR* Enoxaparin 40 MG/0.4 ML SYRINGE SQ SCH (06:00)
[2019-11-23] MEDS ORDERED: Levothyroxine 25 MCG TABLET PO SCH (06:30)
[2019-11-23] MEDS ORDERED: Aspirin Enteric Coated 81 MG Tablet PO SCH (09:00)
== END 2019-11-22 22:07 | disposition other institution (70) | DRG 52 ==
LOC: EMEROOPIK 08:27 → INPPIK 11:22
PROVIDERS: ADMIT Family Medicine; ATTEND Family Medicine